=== PATIENT | male | born 1935 | race Caucasian/White ===

== ENCOUNTER → 2017-01-06 | Outpatient (CLI) | payer OTHER ==
[~2017-01-06] VITALS: Ht 180.3 cm; Wt 90.7 kg
[~2017-01-06] MED LIST: ALENDRONATE SOD70 MG PO; ALTACE10 MG PO; CALCIUM 1,2001 EACH PO; FOLIC ACID1 MG PO; LEVAQUIN500 MG PO; METHOTREXATE2.5 MG PO; METOPROLOL TART50 MG PO; OMEPRAZOLE20 MG PO; PRADAXA150 MG PO; PREDNISONE10 MG PO; VITAMIN D1000 UNIT PO
== END | disposition home or self-care (01) ==
LOC: AMB 10:54
PROC: 0DBK8ZX Excision of Ascending Colon, Via Natural or Artificial Opening Endoscopic, Diagnostic (ICD-10-PCS; principal; 2017-01-06)
DX: D12.2 Benign neoplasm of ascending colon (principal); K57.30 Diverticulosis of large intestine without perforation or abscess without bleeding; I48.91 Unspecified atrial fibrillation; I10 Essential (primary) hypertension; Z79.01 Long term (current) use of anticoagulants; Z85.46 Personal history of malignant neoplasm of prostate; Z87.891 Personal history of nicotine dependence; Z88.8 Allergy status to other drugs, medicaments and biological substances
CPT/HCPCS: 88305; 93005

== ENCOUNTER 2017-06-11 14:32 | Emergency (ER) | payer OTHER ==
[~2017-06-11] VITALS: Ht 172.7 cm; Wt 90.6 kg
[2017-06-11 15:33] LABS: PLATELET COUNT 120 K/uL (156-360)
[2017-06-11 15:46] LABS: HEMATOCRIT 40.9 % (38.0-50.0); MCH 30.9 PG (29.0-34.0); MCHC 32.8 G/DL (30.0-36.0); MCV 94.5 FL (86-99); RBC DIS.WIDTH-CV 15.6 % (11.8-14.6); RBC DIS.WIDTH-SD 53.2 % (39-53); RED BLOOD COUNT 4.33 M/uL (4.00-5.50)
[2017-06-11 15:48] LABS: CHLORIDE 102 mEq/L (99-109); SODIUM 134 mEq/L (136-147)
[2017-06-11 15:50] LABS: GLUCOSE 83 mg/dL (70-99)
[2017-06-11 15:51] LABS: ANION GAP 13 MEQ/L (2-14)
[2017-06-11 15:52] LABS: TOTAL BILIRUBIN 0.7 mg/dL (0.0-1.0)
[2017-06-11 15:54] LABS: ALKALINE PHOSPHATASE 69 IU/L (3-129); GFR ESTIMATE (CALCULATED) 34 mL/min/
[2017-06-11 15:55] LABS: UREA NITROGEN (BUN) 34 mg/dL (9-23)
[2017-06-11 15:57] LABS: LIPASE 12 U/L (1.0-51.0)
[2017-06-11 15:59] LABS: WHITE BLOOD COUNT 31.7 K/uL (4.1-10.2)
[2017-06-11 17:58] LABS: COLOR BLOODY ((YELLOW))
[2017-06-11 17:59] LABS: BILIRUBIN NEGATIVE; GLUCOSE (STRIP) NEGATIVE
[2017-06-11 18:00] LABS: BLOOD LARGE; KETONES SMALL
[2017-06-11 18:01] LABS: PROTEIN (STRIP) >2000
[2017-06-11 18:02] LABS: ADD MIUA? YES; LEUKOCYTES LARGE
[2017-06-11 18:15] LABS: RED BLOOD CELLS TNTC /HPF (0-5); WHITE BLOOD CELLS TNTC /HPF (0-5)
[2017-06-12 00:30] VITALS: BP 112/63
== END 2017-06-12 00:49 | disposition short-term general hospital (02) ==
LOC: EME 14:32
PROVIDERS: Nurse Practitioner Family; Physician Assistant
DX: A41.9 Sepsis, unspecified organism (principal); R65.20 Severe sepsis without septic shock; N17.9 Acute kidney failure, unspecified; N12 Tubulo-interstitial nephritis, not specified as acute or chronic; E86.0 Dehydration; N20.0 Calculus of kidney; E87.2 Acidosis; I10 Essential (primary) hypertension; I48.91 Unspecified atrial fibrillation; Z87.442 Personal history of urinary calculi; Z88.8 Allergy status to other drugs, medicaments and biological substances; Z87.891 Personal history of nicotine dependence
CPT/HCPCS: 74176; 80053; 81003; 83605; 83690; 85027; 87040; 99281; 99285; J2543; J3370; J7040